=== PATIENT | female | born 1945 ===

== ENCOUNTER 2017-11-22 07:28 | Emergency (ER) | payer MEDICARE, BC ==
--- NOTE | 2017-11-22 08:29 | UC ---
Ear Complaint HPI - HPI Summary HPI Summary: pt reports 2 episodes of vertigo and R ear fulness over 5 weeks. Has been treated by PT and with meclizine with fairly good results. over past 2-3 days has developed increased R ear fullness and sinus pressure over and around R eye , feels dizzy if bends forward - History of Current Complaint Chief Complaint: UCEar Stated Complaint: EAR COMPLAINT Time Seen by Provider: 11/22/17 08:06 Hx Obtained From: Patient Onset/Duration: Gradual Onset Severity Initially: Mild Severity Currently: Moderate Pain Intensity: 5 Aggravating Factors: Other - movement Associated Signs/Symptoms: Negative: Hearing Loss - Allergies/Home Medications Allergies/Adverse Reactions: Allergies Allergy/AdvReac Type Severity Reaction Status Date / Time Penicillins Allergy Hives Verified 11/22/17 07:41 Sulfa (Sulfonamide Allergy Hives Verified 11/22/17 07:41 Antibiotics) PMH/Surg Hx/FS Hx/Imm Hx Previously Healthy: Yes Endocrine History: Hypothyroidism, Dyslipidemia Cardiovascular History: Hypertension - Surgical History Surgical History: Yes Surgery Procedure, Year, and Place: 2 hernia operations; hysterrectomy; T & A - Family History Known Family History: Positive: None - Social History Occupation: Retired Lives: With Family Alcohol Use: Rare Substance Use Type: None Smoking Status (MU): Never Smoked Tobacco Review of Systems Constitutional: Negative Skin: Negative Eyes: Negative ENT: Sinus Pain/Tenderness, Other - ear fullness Respiratory: Negative Cardiovascular: Negative Gastrointestinal: Negative All Other Systems Reviewed And Are Negative: Yes Physical Exam Triage Information Reviewed: Yes Appearance: Well-Appearing, No Pain Distress, Well-Nourished Vital Signs: Initial Vital Signs Temp 96.3 F 11/22/17 07:37 Pulse 63 11/22/17 07:37 Resp 18 11/22/17 07:37 BP 169/61 11/22/17 07:37 Pulse Ox 100 11/22/17 07:37 Vital Signs Reviewed: Yes Eyes: Positive: Conjunctiva Clear ENT: Positive: Pharynx normal, Nasal congestion, TM dull, Sinus tenderness - R maxillary/frontal sinus area Dental Exam: Normal Neck exam: Normal Neck: Positive: Supple, Nontender Respiratory Exam: Normal Cardiovascular Exam: Normal Musculoskeletal Exam: Normal Psychological Exam: Normal Skin Exam: Normal Ear Complaint Course/Dx - Differential Dx/Diagnosis Differential Diagnosis/HQI/PQRI: Cerumen Impaction, Foreign Body, Otitis Externa , Otitis Media, Other - sinusitis Provider Diagnoses: sinusitis, serous otitis Discharge - Sign-Out/Discharge Documenting (check all that apply): Discharge/Admit/Transfer - Discharge Plan Condition: Good Disposition: HOME Prescriptions: Ciprofloxacin TAB* [Cipro 500 MG TAB*] 500 mg PO BID #20 tab Referrals: Non Staff,Doctor [Primary Care Provider] - Additional Instructions: take antibiotic as prescribed use sudafed (from pharmacist) as directed for 2 days Ok to take meclizine if needed for dizziness follow-up with R[facility] in 2-3 days if no improvement - Billing Disposition and Condition Condition: GOOD Disposition: Home
== END 2017-11-22 08:40 | disposition home or self-care (01) ==
LOC: UCEAST 07:28
DX: H65.91 Unspecified nonsuppurative otitis media, right ear (principal); J32.9 Chronic sinusitis, unspecified; I10 Essential (primary) hypertension; Z88.0 Allergy status to penicillin; Z88.2 Allergy status to sulfonamides
CPT/HCPCS: 99212; G0463